=== PATIENT | male | born 1945 | race Caucasian/White ===

== ENCOUNTER → 2017-03-22 | Day surgery (SDC) | payer MEDICARE, OTHER ==
[~2017-03-22] VITALS: Ht 185.4 cm; Wt 95.8 kg
[~2017-03-22] MED LIST: ASPIRIN LO-DOSE81 MG PO; PERCOCET 5-3251 EACH PO; ZOCOR40 MG PO
--- NOTE | ~2017-03-22 | OR ---
PATIENT'S NAME: BEVERLY BOWERS [facility] AGE: 71 Y [address] ROOM: [place] [id number] LOCATION: [facility] [place] ADMIT DATE: 03/22/2017 OR/Procedure Report DISCHARGE DATE: FAMILY PHYSICIAN: CRESCENCIO MCLEOD ATTENDING PHYSICIAN: Romelia Guzman SURGEON: Romelia Guzman MD HVAC INSTALLER: DATE OF PROCEDURE: 03/22/2017 PREOPERATIVE DIAGNOSIS: Left carpal tunnel syndrome. POSTOPERATIVE DIAGNOSIS: Left carpal tunnel syndrome. OPERATION PROPOSED AND PERFORMED: Left carpal tunnel release. PROCEDURE: On the left median nerve block, the left distal forearm and hand were prepped and draped in the usual fashion. A curvilinear incision was then carried out extending from the wrist all the way down to the palmar surface. Incision was then carried through the transverse carpal ligament until we were able to identify the median nerve. Having identified the median nerve, the incision of the transverse carpal ligament was then continued at proximal and distal limits of the ligament. The ligament was quite thick and narrowing the carpal tunnel. After this was done, the wound was irrigated with saline and closed in a single layer. The patient tolerated the procedure well and was taken back to the outpatient waiting area. ROMELIA GUZMAN MD AEB/modl /[id number] d: 03/22/171726 t: 04/01/17 1453, OPERATIVE SUMMARY
== END ==
LOC: GPOC 03-18 14:00 → GSDC 07:00 → GPOC 14:00
PROC: 01N50ZZ Release Median Nerve, Open Approach (ICD-10-PCS; principal; 2017-03-22)
DX: G56.02 Carpal tunnel syndrome, left upper limb (principal); Z79.82 Long term (current) use of aspirin; Z79.899 Other long term (current) drug therapy
CPT/HCPCS: J0690; J2001; J2250; J7120